=== PATIENT | female | born 1935 | race Hispanic/Latino ===

== ENCOUNTER 2021-04-09 13:07 | Inpatient (IN) | payer MEDICARE ==
[2021-04-09] MEDS ORDERED: HumaLOG 300 UNITS/3 ML VIAL SC PRN ×2 (15:06)
[2021-04-09] MEDS ORDERED: Dextrose 5% in Water 1,000 ML IV PRN (15:06)
[2021-04-09] MEDS ORDERED: Dextrose 50% Abboject 50 ML SYRINGE SLOW IVP PRN (15:06)
[2021-04-09 15:11] VITALS: BMI 27.3
[2021-04-09] MEDS: Sodium Chloride 0.9% 1,000 ML IV SCH (15:50)
[2021-04-09] MEDS ORDERED: cefTRIAXone\\ROCEPHIN 1 GM in Sodium Chloride 0.9% 100 ML IVPB SCH (16:00)
[2021-04-09 16:28] LABS: Hemoglobin A1c 5.8 % (4.0-6.0)
[2021-04-09 16:42] LABS: Troponin I 0.213 ng/mL (< 0.028)
[2021-04-09 16:44] LABS: Iron 28 ug/dL (50-170); Iron Binding Capacity, Total 194 mcg/dL (265-497)
[2021-04-09] MEDS ORDERED: Azithromycin 500 MG in Sodium Chloride 0.9% 250 ML 250 ML IVPB SCH (17:00)
[2021-04-09] MEDS ORDERED: Ondansetron ODT 4 MG TAB SL PRN (19:00)
[2021-04-09 20:05] LABS: Troponin I 0.147 ng/mL (< 0.028)
[2021-04-10] MEDS: Sodium Chloride 0.9% 1,000 ML IV SCH (06:40)
[2021-04-10] MEDS: Aspirin 325 mg Enteric Coated Tablet PO SCH (10:20)
[2021-04-10] MEDS: Enoxaparin Sodium 30 MG/0.3 ML SYRINGE SC SCH (10:20)
[2021-04-10 10:21] LABS: #Eosinphils 0.1 thou/uL (0.0-0.7); #Lymphocytes 1.2 thou/uL (1.20-3.40); #Monocytes 0.6 thou/uL (0.11-0.59); #Neutrophils 6.6 thou/uL (1.40-6.50); %Basophils 0.2 % (0.0-1.0); %Eosinophils 0.6 % (0.0-10.0); %Lymphocytes 14.3 % (21.0-51.0); %Monocytes 6.9 % (0.0-10.0); %Neutrophils 77.9 % (42.0-75.0); Mean Corpuscular HGB CONC 30.6 g/dL (32.0-36.0); Mean Corpuscular Hemoglobin 29.3 pg (27.0-31.0); Mean Corpuscular Volume 95.7 fL (78.0-98.0); Mean Platelet Volume 8.8 fL (7.4-10.4); Platelet Count 139 thou/uL (130-400); RBC Distribution Width 13.3 % (11.5-14.5); Red Blood Cell (RBC) Count 4.09 mill/uL (4.20-5.40); White Blood Cell (WBC) Count 8.4 thou/uL (4.8-10.8)
[2021-04-10 10:33] LABS: Anion Gap 13 mmol/L (10-20); BUN (Urea Nitrogen) 33 mg/dL (9.8-20.1); Calc. Creatinine Clearance 25 mL/min (70-130); Calcium 8.6 mg/dL (7.8-10.44); Carbon Dioxide 20 mmol/L (23-31); Chloride 115 mmol/L (98-107); Glucose 129 mg/dL (83-110); Potassium 4.8 mmol/L (3.5-5.1); Sodium 143 mmol/L (136-145)
[2021-04-10] MEDS ORDERED: Cefdinir 300 MG CAP PO SCH (12:15)
[2021-04-10] MEDS ORDERED: Azithromycin 250 MG TAB PO SCH (12:15)
[2021-04-10] MEDS: Cefdinir 300 MG CAP PO SCH (21:09)
[2021-04-10] MEDS: Acetaminophen 325 MG TAB PO PRN (22:36)
[2021-04-10] MEDS ORDERED: Sodium Chloride 0.65% Nasal 44 ML BOT EA NARE PRN (22:47)
[2021-04-10] MEDS ORDERED: Gabapentin 300 MG CAP PO SCH (23:00)
[2021-04-11 04:34] LABS: #Eosinphils 0.1 thou/uL (0.0-0.7); #Lymphocytes 1.7 thou/uL (1.20-3.40); #Monocytes 0.4 thou/uL (0.11-0.59); %Basophils 0.6 % (0.0-1.0); %Eosinophils 2.9 % (0.0-10.0); %Lymphocytes 40.4 % (21.0-51.0); %Monocytes 9.1 % (0.0-10.0); Hemoglobin 9.8 g/dL (12.0-16.0); Mean Corpuscular HGB CONC 32.5 g/dL (32.0-36.0); Mean Corpuscular Hemoglobin 30.7 pg (27.0-31.0); Mean Corpuscular Volume 94.5 fL (78.0-98.0); Mean Platelet Volume 8.6 fL (7.4-10.4); Platelet Count 129 thou/uL (130-400); RBC Distribution Width 13.1 % (11.5-14.5); White Blood Cell (WBC) Count 4.2 thou/uL (4.8-10.8)
[2021-04-11 05:00] LABS: ALT (SGPT) 8 U/L (8-55); AST (SGOT) 13 U/L (5-34); Albumin 2.8 g/dL (3.4-4.8); Alkaline Phosphatase 53 U/L (40-110); Anion Gap 11 mmol/L (10-20); BUN (Urea Nitrogen) 30 mg/dL (9.8-20.1); Bilirubin, Total 0.2 mg/dL (0.2-1.2); Calc. Creatinine Clearance 36 mL/min (70-130); Calcium 8.3 mg/dL (7.8-10.44); Carbon Dioxide 22 mmol/L (23-31); Chloride 114 mmol/L (98-107); Globulin 2.4 g/dL (2.4-3.5); Glucose 104 mg/dL (83-110); Potassium 4.3 mmol/L (3.5-5.1); Protein, Total 5.2 g/dL (5.8-8.1); Sodium 143 mmol/L (136-145)
[2021-04-11 07:02] VITALS: BP 133/72; TEMP 97.8
[2021-04-11] MEDS: Sodium Chloride 0.9% 1,000 ML IV SCH ×2 (07:28→08:44)
[2021-04-11] MEDS: Aspirin 325 mg Enteric Coated Tablet PO SCH (08:41)
[2021-04-11] MEDS: Cefdinir 300 MG CAP PO SCH (08:41)
[2021-04-11] MEDS: Enoxaparin Sodium 30 MG/0.3 ML SYRINGE SC SCH (08:42)
[2021-04-11] MEDS: Acetaminophen 325 MG TAB PO PRN (08:42)
[2021-04-11] MEDS ORDERED: Gabapentin 300 MG CAP PO SCH (09:00)
[2021-04-11] MEDS ORDERED: Azithromycin 250 MG TAB PO SCH (09:00)
== END 2021-04-11 10:50 | disposition home or self-care (01) | DRG 196 ==
LOC: 2NO 14:43
PROVIDERS: ADMIT Family Medicine; ATTEND Internal Medicine
DX: J84.114 Acute interstitial pneumonitis (principal); G93.41 Metabolic encephalopathy; I21.A1 Myocardial infarction type 2; G93.40 Encephalopathy, unspecified; N17.9 Acute kidney failure, unspecified; I13.0 Hypertensive heart and chronic kidney disease with heart failure and stage 1 through stage 4 chronic kidney disease, or unspecified chronic kidney disease; I50.32 Chronic diastolic (congestive) heart failure; Z66 Do not resuscitate; Z20.822 Contact with and (suspected) exposure to COVID-19; I12.9 Hypertensive chronic kidney disease with stage 1 through stage 4 chronic kidney disease, or unspecified chronic kidney disease; E11.22 Type 2 diabetes mellitus with diabetic chronic kidney disease; N18.9 Chronic kidney disease, unspecified; D63.1 Anemia in chronic kidney disease; E07.9 Disorder of thyroid, unspecified; G40.909 Epilepsy, unspecified, not intractable, without status epilepticus; E66.9 Obesity, unspecified; G25.2 Other specified forms of tremor; E86.0 Dehydration; R13.10 Dysphagia, unspecified; Z90.710 Acquired absence of both cervix and uterus; Z90.49 Acquired absence of other specified parts of digestive tract; Z98.890 Other specified postprocedural states; Z88.8 Allergy status to other drugs, medicaments and biological substances; Z68.26 Body mass index [BMI] 26.0-26.9, adult; Z79.82 Long term (current) use of aspirin; Z79.84 Long term (current) use of oral hypoglycemic drugs; Z79.899 Other long term (current) drug therapy
CPT/HCPCS: 36415; 36416; 80053; 82728; 83036; 83540; 83550; 85025; 87804; 93306; 94640; 94760; J0456; J0696; J1650; J1815; J3490; J7050; J7620